=== PATIENT | male | born 1980 | race Caucasian/White ===

== ENCOUNTER 2019-12-09 08:39 | Inpatient (IN) | payer OTHER, SELFPAY ==
[2019-12-09] VITALS (17 sets, daily range): BP systolic 145–237; BP diastolic 92–150; PULSE 95–126; RESP 18–30; TEMP 36–37; O2SAT 95–97; BMI 50.7
--- NOTE | ~2019-12-09 | XR_ITS ---
EXAMINATION: XR chest 2V DATE: 12/09/2019 09:25 INDICATION: Shortness of breath. TECHNIQUE: Frontal and lateral views of the chest were obtained. COMPARISON: Chest 2 views 10/28/2018, chest CT 10/28/2018 FINDINGS: Sensitivity is decreased by obesity. There is a small right pleural effusion. There is mild atelectasis at right lung base. No pneumothorax. There is enlargement of the cardiac silhouette. IMPRESSION: 1. Stable small right pleural effusion. 2. Stable enlargement of the cardiac silhouette, likely a combination of cardiomegaly and pericardial effusion as seen on the prior CT. Reviewed, dictated and finalized at location A. IMPRESSION: 1. Stable small right pleural effusion. 2. Stable enlargement of the cardiac silhouette, likely a combination of cardio megaly and pericardial effusion as seen on the prior CT.
--- NOTE | 2019-12-09 08:51 | ECG_ITS ---
Measurements Intervals [place] Rate: 119 P: 63 IN: 155 QRS: 123 QRSD: 100 T: 39 QT: 329 QTc: 463 Interpretive Statements SINUS TACHYCARDIA POSSIBLE LEFT ATRIAL ENLARGEMENT RIGHT AXIS DEVIATION BORDERLINE R WAVE PROGRESSION, ANTERIOR LEADS BORDERLINE ST-T WAVE ABNORMALITY- INF/LAT LEADS BASELINE ARTIFACT- I, II, III, AVL ABNORMAL ECG Electronically Signed On 12-09-2019 9:33:41 CDT by Edi Soto D.O.
[2019-12-09 09:10] LABS: Basophils Absolute Auto 0.1 K/mm3 (0.0-0.1); Basophils Percent Auto 0.4 % (0.2-1.2); Eosinophils Absolute Auto 0.2 K/mm3 (0-0.3); Eosinophils Percent Auto 1.2 % (0-4.4); Hematocrit 45.7 % (42.0-52.0); Hemoglobin 14.2 g/dL (14.0-18.0); Immature Granulocyte Absolute 0.08 K/mm3 (0.00-0.031); Immature Granulocyte Percent A 0.5 % (0-0.5); Lymphocytes Absolute Auto 2.75 K/mm3 (0.9-3.2); Mean Corpuscular HGB Conc 31.1 g/dl (32-36); Mean Corpuscular Hemoglobin 29.2 pg (26-34); Mean Platelet Volume 9.9 fl (7.4-10.4); Monocytes Percent Auto 6.1 % (2.6-8.5); Neutrophils Absolute Auto 12.1 K/mm3 (1.3-6.7); Neutrophils Percent Auto 74.8 % (45.5-73.1); Platelet Count Result 434 k/mm3 (150-375); Red Blood Count 4.86 M/mm3 (4.6-6.20); Red Cell Distribution Width 16.3 % (11.5-14.5); White Blood Count 16.2 K/mm3 (4.5-10.0)
--- NOTE | 2019-12-09 09:10 | ED.SOB ---
HPI - SOB/Dyspnea General Chief Complaint: Shortness of Breath/Dyspnea Stated Complaint: SOB Time Seen by Provider: 12/09/19 09:00 Source: patient, RN notes reviewed (Disagree with triage note, patient diagnosed with CHF 1 year ago, not 1 month) and old records reviewed Mode of arrival: ambulatory Limitations: no limitations History of Present Illness HPI Narrative: Patient is a 39-year-old male who presents to the emergency department with complaint of shortness of breath and fluid retention. Patient reports onset of symptoms approximately a month ago. Patient was diagnosed with congestive heart failure a little over a year ago and was admitted to the hospital. Patient had not previously been diagnosed with any medical conditions prior to that admission. Patient was found to be extremely hypertensive and in acute heart failure. Patient was discharged with medications, but never followed up with cardiology or primary care physician and stopped taking medicines a couple of months after being discharged in the hospital when the prescriptions ran out. Patient states over the past month he has noticed increasing fluid retention and shortness of breath. Patient reports his symptoms are better if he is sitting in an upright position and worse in reclined position. Patient notes significant dyspnea when he tries to exert himself. Patient also reports intermittent nausea and vomiting for quite some time. MD elicited complaint: shortness of breath Pertinent past history: congestive heart failure Onset (ago): month(s) Exacerbating factors: lying flat and exertion Relieving factors: rest and upright position Known history of: congestive heart failure Associated symptoms: nausea/vomiting Treatment prior to arrival: none Related Data Home oxygen amount: none Home Medications Medication Instructions Recorded Confirmed No Home Medications 12/09/19 12/09/19 Allergies Allergy/AdvReac Type Severity Reaction Status Date / Time penicillin G Allergy Unknown Unknown Verified 10/28/18 05:07 Review of Systems Review of Systems: All systems reviewed & are unremarkable except as noted in HPI and below Constitutional: Constitutional: Reports excessive sweating and Denies fever(s) Cardiovascular: Cardiovascular: Denies chest pain and Reports edema Respiratory: Respiratory: Reports dyspnea Gastrointestinal: Gastrointestinal: Denies abdominal pain, Reports nausea and Reports vomiting PMFSH Past Medical History Medical History (Updated 12/09/19 @ 20:25 by Jayleen Krishnamurthy MD) Cardiomyopathy Hypertension Morbid obesity Systolic congestive heart failure Type 2 diabetes mellitus with hyperglycemia, without long-term current use of insulin Surgical History Surgical History No significant past surgical history Family History Family History (Updated 12/09/19 @ 15:52 by Jitendra Smith MD) Mother , in 2014 while in her mid-50's. First [place] in her mid-40s. Acute myocardial infarction Father Alive and well Social History Social History (Updated 12/09/19 @ 17:24 by Alma Pavon MD) Social History: Patient lives with his father and brother. 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 Smoking status: Never smoker Alcohol intake: current Drinks per week: 1 Alcohol use details: Occasional, light Substance use: never Living arrangements: with family Occupation/Education: occupation Gender identity (if verbalized by the patient): Male Spiritual care concerns: No Exam Const: General: cooperative, no acute distress, alert and diaphoretic Nutritional Appearance: obese morbidly obese Orientation/consciousness: patient oriented x3 Limitations: no limitations HENMT: Mouth: Yes lip normal and Yes moist mucous membranes Resp: Effort & Inspection: normal respiratory effort Auscultation: rales bilateral at the base and diminished lung sounds tiffany
[2019-12-09 09:26] LABS: INR 1.1; Prothrombin Time 14.2 Seconds (11.1-14.7)
[2019-12-09 09:27] LABS: Partial Thromboplastin Time 26.9 SECONDS (22.3-36.8)
[2019-12-09 09:29] LABS: Blood Urea Nitrogen 25 mg/dL (9-20); Calcium 8.8 mg/dL (8.4-10.2); Carbon Dioxide 25 mmol/L (22-30); Chloride 103 mmol/L (98-107); Estimated CRCL calculation 84 ml/min; Estimated Glomerular Filt Rate 57; Glucose 223 mg/dL (75-110); Potassium 4.3 mmol/L (3.4-5.0); Sodium 138 mmol/L (137-145)
[2019-12-09] MEDS: FUROSEMIDE INJ 40 MG/4 ML VIAL IV PUSH ×2 (09:29→20:47)
[2019-12-09] MEDS: NITROGLYCERIN OINTMENT 1 INCH DOSE TRANSDERM ×4 (09:30→23:02)
[2019-12-09 09:44] LABS: NT Pro B Type Natriuretic Pept 4120 PG/ML (5-100); Troponin I 0.091 ng/mL (0.000-0.034)
[2019-12-09] MEDS: hydrALAZINE HCL 20 MG/ML VIAL 10 MG IV PUSH ×2 (10:48→17:17)
[2019-12-09 11:08] LABS: Glucose Point of Care 207 (65-105)
--- NOTE | 2019-12-09 11:44 | ADMGEN ---
This patient, Everardo Sherwood, was admitted to IMU Room 201-01. Patient/family oriented to hospital policies and general routines including ID bracelet, bed and alarms, visiting hours, pain management, procedures, bathroom and other care routines, personal items, smoking policy, room service/diet, and visiting hours. Valuables list has been completed. Information on how to activate the Rapid Response Team has been discussed. Patient/Family are encouraged to report perceived risks to care and to ask questions if they do not understand what they are told or what they should do.
[2019-12-09 12:24] LABS: Glucose Point of Care 205 (65-105)
--- NOTE | 2019-12-09 13:13 | PM.IMHP ---
H&P: HPI History of Present Illness Chief complaint: ACUTE CHF,HYPERGLYCEMIA Narrative: Everardo Sherwood is a 39 year old male who was 1st diagnosed with dilated cardiomyopathy in October of 2018. He was admitted [facility] for acute systolic congestive heart failure and pulmonary edema with symptoms of dyspnea and swelling. He was diuresed and placed on Josef inhibitors and beta-blockers. He took lisinopril 10 mg daily, carvedilol 6.25 mg every 12 hours, furosemide 40 mg twice daily, potassium chloride 20 mEq 2 tabs twice a day with meals, and enteric-coated aspirin 81 mg daily. He he took these medications regularly and did fairly well until about 4 weeks ago. He was trying to eat healthy and do some walking daily. He attributes the onset of his symptoms to the COVID-19 pandemic and quarantine. However, coincidentally he also ran out of medications at that time. Since then, he has experienced gradually increasing shortness of breath, weight gain, abdominal bloating, and pedal edema. Walking across the room cause severe dyspnea. He has been sleeping on the couch because he has not been able to lie flat in bed. He awakened short of breath if he lies flat. On the night prior to admission he developed some nausea with emesis but no abdominal pain. His abdomen felt more bloated. He was more short of breath. Because of this he presented to the emergency department on the morning of December 08. Review of Systems Review of Systems: All systems reviewed & are unremarkable except as noted in HPI and below PMFSH Past Medical History Medical History Cardiomyopathy Hypertension Morbid obesity Systolic congestive heart failure Surgical History Surgical History No significant past surgical history Family History Family History (Updated 12/09/19 @ 15:52 by Jitendra Smith MD) Mother , in 2014 while in her mid-50's. First [place] in her mid-40s. Acute myocardial infarction Father Alive and well Social History Social History (Updated 12/09/19 @ 15:52 by Jitendra Smith MD) Smoking status: Never smoker Alcohol intake: current Drinks per week: 1 Alcohol use details: Occasional, light Substance use: never Living arrangements: with family Occupation/Education: occupation Gender identity (if verbalized by the patient): Male Spiritual care concerns: No Meds Home Medications and Allergies Allergies Allergy/AdvReac Type Severity Reaction Status Date / Time penicillin G Allergy Unknown Unknown Verified 10/28/18 05:07 Vital Signs Vital Signs - 24 hr 12/09/19 08:43 12/09/19 08:48 12/09/19 10:12 Temperature 98.6 F Pulse Rate 126 H 123 H 115 H Respiratory Rate 29 H 25 H Blood Pressure 211/139 H 237/150 H Pulse Oximetry 97 96 12/09/19 10:56 12/09/19 11:13 12/09/19 12:00 Temperature Pulse Rate 110 H 109 H 114 H Respiratory Rate 18 30 H Blood Pressure 185/122 H 194/114 H Pulse Oximetry 95 96 12/09/19 12:40 Temperature 98.2 F Pulse Rate 113 H Respiratory Rate 24 H Blood Pressure 169/104 H Pulse Oximetry 95 Exam Narrative: Exam Narrative: HEENT: EOMI, PERRL, sclerae nonicteric, pharyngeal mucosa pink and intact NECK: No JVD, adenopathy, or thyromegaly CHEST: Clear to auscultation. Normal effort. HEART: NL S1/S2, regular, no murmur ABDOMEN: BS+, soft, nontender, no mass, no bruits EXTREMITIES: No cyanosis, 1+ pretibial edema NEUROLOGIC: CN intact and symmetric to inspection. MUSCULOSKELETAL: Tone and strength symmetric. PSYCH: Alert. Oriented to person, place, and time. H&P: Results Labs Labs: Short CBC 12/09/19 Range/Units 08:59 WBC 16.2 H (4.5-10.0) K/mm3 Hgb 14.2 (14.0-18.0) g/dL Hct 45.7 (42.0-52.0) % Plt Count 434 H (150-375) k/mm3 BMP 12/09/19 08:59 Sodium 138 Potassium 4.3 Chloride 103 Carbon Dioxide 25 B
[2019-12-09 13:16] LABS: Troponin I 0.101 ng/mL (0.000-0.034)
[2019-12-09 16:05] LABS: Troponin I 0.104 ng/mL (0.000-0.034)
[2019-12-09] MEDS: ACETAMINOPHEN 325 MG TABLET 650 MG PO ×2 (16:33→20:57)
[2019-12-09 16:39] LABS: Glucose Point of Care 211 (65-105)
--- NOTE | 2019-12-09 16:44 | WPDCN ---
Assessment and Plan Assessment and plan (1) Acute on chronic systolic (congestive) heart failure: Code(s): I50.23 - Acute on chronic systolic (congestive) heart failure Status: Acute Assessment and Plan: Progressive problems with recurrent CHF as described above, likely due to noncompliance and uncontrolled hypertension. Feeling better already with diuresis and better blood pressure. (2) Hypertensive cardiomyopathy: Code(s): I11.9 - Hypertensive heart disease without heart failure; I43 - Cardiomyopathy in diseases classified elsewhere Status: Acute Assessment and Plan: Cardiomyopathy, most likely secondary to uncontrolled hypertension, EF 30% in 2018. I am distress at the patient's resume hooker that since it ?runs in the family? there is nothing he can do about it. It is a poor prognostic sign to have an ejection fraction of 30% when you are only 39 years old. Reviewed hypertension, and end organ disease. Reviewed benefits of compliance with medical therapy. Patient states that now that he has Medicaid he will be compliant with medications, and follow-up. Check echo Continue IV Lasix Daily BMP Reinstitute carvedilol and lisinopril, titrate as tolerated, agree w/ spironolactone. I have offered to perform the cardiac catheterization recommended last year during this admission to rule out coronary artery disease (I think that is very unlikely however). The patient has declined but says he will consider it at a later date. (3) Uncontrolled hypertension: Code(s): I10 - Essential (primary) hypertension Status: Acute Assessment and Plan: Severe hypertension, out of blood pressure medications for several months. (4) Noncompliance: Code(s): Z91.19 - Patient's noncompliance with other medical treatment and regimen Status: Acute Assessment and Plan: States he has been noncompliant with follow-up because of lack of insurance. Fortunately now he has Medicaid. (5) Elevated troponin I level: Code(s): R79.89 - Other specified abnormal findings of blood chemistry Status: Acute Assessment and Plan: Similar to last admission, likely secondary to CHF and hypertension, no evidence of ACS. (6) Type 2 diabetes mellitus with hyperglycemia, without long-term current use of insulin: Code(s): E11.65 - Type 2 diabetes mellitus with hyperglycemia Status: Acute Assessment and Plan: New diagnosis of diabetes. (7) Morbid obesity: Code(s): E66.01 - Morbid (severe) obesity due to excess calories Status: Acute Assessment and Plan: Likely has sleep apnea; will do an apnea link. HPI Data of Consult Date/Time: 12/09/19 16:44 Requesting Physician: Penny Fall MD Primary Care Provider: PARKING INSPECTOR PHYSICIAN Consult Narrative Narrative: Date of service: 12/09/2019 Everardo Sherwood is a 39 year old male whom we were asked to see at the request of the hospitalist for advice and opinion regarding his CHF in consultation. He has a history of hypertension, cardiomyopathy and CHF. The patient was admitted October 2018 with new onset of heart failure and uncontrolled hypertension. His echo EF was 30% and troponins were 0.11. He was diuresed and started on medications. The plan was performed to perform an outpatient cardiac catheterization because of the elevated troponins., he either no showed or cancel 5 follow-up visits so we never saw him in the office. He apparently ran out of his medicines a few months after his admission. He states he was uninsured and could not afford to be seen but he now has [place] Medicaid. He has been having some progressive dyspnea on exertion. His GRIDER got worse in the
[2019-12-09] MEDS: INSULIN ASPART (*BKC) 100 UNITS/ML SUB-Q (17:17)
[2019-12-09] MEDS: ENOXAPARIN 40 MG/0.4 ML SYRINGE SUB-Q (17:18)
[2019-12-09 20:20] LABS: Glucose Point of Care 216 (65-105)
[2019-12-09] MEDS: lisinopriL 5 MG TABLET PO (20:49)
[2019-12-09] MEDS: carvediloL 3.125 MG TABLET PO (20:50)
[2019-12-10] VITALS (20 sets, daily range): BP systolic 130–156; BP diastolic 75–100; PULSE 84–101; RESP 18–22; TEMP 35.6–36.1; O2SAT 96–98; BMI 47.3
--- NOTE | 2019-12-10 | ECHO_ITS ---
Patient Info Name: Everardo Sherwood Age: 39 years : 1980 Gender: Male Ht: 68 in Wt: 333 lbs BSA: 2.78 m2 HR: 100 bpm BP: 149 / 93 mmHg Heart Rhythm: Tachycardia Technical Quality: Good Exam Date: 12/10/2019 9:57 AM Exam Location: [facility] Pulmonary Patient Status: Inpatient Admit Date: 12/09/2019 Staff Ordering Physician: Jitendra Smith MD Food Science Technician: Sher Kulkarni RDCS Attending Provider: Penny Fall MD Referring Physician: Luis DUNCAN; Exam Type: CA echo dop color flow w con Study Info Indications I42.0 - Dilated cardiomyopathy Complete two-dimensional, color flow and Doppler transthoracic echocardiogram is performed with contrast to opacify the left ventrical and to improve the deliniation of the left ventrical endocarial boarders. Contrast/Agitated Saline Contrast/Ag. Saline: Definity Amount: 2.00 ml Administered By: Hebert Montgomery RN Existing IV Access: Yes History/Risk Factors CHF; SOB, HTN, DM, edema, orthopnea, SOB, medical non-compliance. Summary 1. Left ventricular systolic function is severely reduced, estimated at 30-35%. 2. Definity contrast injected to enhance visualization. 3. Left ventricular chamber dimension is moderately enlarged. 4. Left atrial chamber dimension is mildly enlarged. 5. There is trace mitral valve regurgitation. 6. Compared with exam from 1 year ago the findings are identical. Left Ventricle Left ventricular chamber dimension is moderately enlarged. Left ventricular systolic function is severely reduced, estimated at 30-35%. The left ventricular diastolic function is grade I diastolic dysfunction. Definity contrast injected to enhance visualization. Right Ventricle Right ventricular chamber dimension is normal. Left Atria Left atrial chamber dimension is mildly enlarged. Right Atria Right atrial chamber dimension is normal. Aortic Valve The aortic valve is normal. Pulmonic Valve The pulmonic valve is normal. Mitral Valve The mitral valve has thickened leaflets. There is trace mitral valve regurgitation. Tricuspid Valve The tricuspid valve leaflets are normal. Pericardium/Pleural There is trivial pericardial effusion. Aorta The aortic root size at the sinus of Valsalva is normal. Left Ventricular Outflow Tract Name Value Normal LVOT 2D LVOT Diameter 2.53 cm LVOT Doppler LVOT Peak Gradient 4 mmHg LVOT Mean Gradient 2 mmHg LVOT VTI 14.98 cm LVOT VTI/AV VTI Ratio 0.62 LVOT Stroke Volume 75.31 ml LVOT CO 7.31 l/min LVOT CI 2.63 L/min/m2 Mitral Valve Name Value Normal MV Doppler MV Decel Cocke
[2019-12-10] MEDS: NITROGLYCERIN OINTMENT 1 INCH DOSE TRANSDERM (05:41)
[2019-12-10] MEDS: ACETAMINOPHEN 325 MG TABLET 650 MG PO (05:45)
[2019-12-10 08:17] LABS: Glucose Point of Care 129 (65-105)
[2019-12-10] MEDS: SPIRONOLACTONE 25 MG TABLET PO (08:28)
[2019-12-10] MEDS: carvediloL 3.125 MG TABLET PO (08:28)
[2019-12-10] MEDS: FUROSEMIDE INJ 40 MG/4 ML VIAL IV PUSH (08:28)
[2019-12-10] MEDS: lisinopriL 5 MG TABLET PO ×2 (08:29→13:01)
[2019-12-10] MEDS: PERFLUTREN LIPID MICROSPHERES 1.5 ML VIAL DILUTED TO 10 ML TOTAL VOLUME (10:45)
[2019-12-10 11:26] LABS: Blood Urea Nitrogen 20 mg/dL (9-20); Calcium 8.8 mg/dL (8.4-10.2); Carbon Dioxide 28 mmol/L (22-30); Chloride 98 mmol/L (98-107); Cholesterol 107 mg/dL (0-200); Estimated CRCL calculation 113 ml/min; Estimated Glomerular Filt Rate > 60; Glucose 250 mg/dL (75-110); HDL Direct 22 mg/dL; Potassium 3.6 mmol/L (3.4-5.0); Sodium 136 mmol/L (137-145); Triglycerides 99 mg/dL (<150)
[2019-12-10 11:37] LABS: LDL Cholesterol Direct 56 mg/dL
[2019-12-10 11:38] LABS: Hemoglobin A1C 7.5 % (<5.7)
--- NOTE | 2019-12-10 11:55 | PM.PNCARD ---
Progress Note: A&P Additional Plan 39-year-old white male with: CHF decompensation, known cardiomyopathy, noncompliance with medication. Echocardiogram looks identical to last year's exam Patient is new nearly euvolemic at this time there are modest bibasilar rales he is also still significantly hypertensive. I will transition his Lasix to p.o. today and advanced both his carvedilol and lisinopril given his hypertension. Set the expectation with the patient that I believe discharged tomorrow morning would be appropriate Follow-up in our office will be scheduled hopefully he will will be compliant Vu Griffin MD [facility] Subjective Date/time seen: Date of service: 12/10/19 11:55 Interval history: 39-year-old male with: Cardiomyopathy, systolic congestive heart failure, noncompliance with medical therapy and follow-up. Patient is now doing well following diuresis and resumption medication for CHF. Long discussion with the patient about the seriousness of his condition and the need for compliance with medication and follow-up Exam Const: General: comfortable and no acute distress HENMT: Mouth: Yes moist mucous membranes Eyes: Sclera: sclerae normal Pupils: Equal, round and reactive pupils present Neck: Neck: supple and no JVD (2 cm of JVD noted above the angle of Dwayne ) Thyroid: thyroid normal Resp: Auscultation: rales bilateral at the base Cardio: Rate: regular rate Rhythm: regular rhythm Other: No murmur S3 noted GI: Auscultation: normal bowel sounds Skin: General skin exam: normal color Neuro: Cognition (Neuro): normal cognition Extrem: Other: Edema seems to be largely resolved Objective Data Vital Signs Vital Signs: Vital Signs - 24 hr 12/09/19 12:00 12/09/19 12:40 12/09/19 13:55 Temperature 36.8 C Pulse Rate 114 H 113 H 109 H Respiratory Rate 24 H Blood Pressure 169/104 H Pulse Oximetry 95 12/09/19 16:00 12/09/19 16:01 12/09/19 17:39 Temperature 36.4 C Pulse Rate 109 H 108 H 101 H Respiratory Rate 21 H Blood Pressure 167/109 H Pulse Oximetry 96 12/09/19 19:25 12/09/19 20:30 12/09/19 20:50 Temperature 36.0 C L Pulse Rate 105 H 105 H 108 H Respiratory Rate 22 H Blood Pressure 162/112 H Pulse Oximetry 97 12/09/19 22:00 12/09/19 23:11 12/09/19 23:15 Temperature 36.1 C L Pulse Rate 101 H 95 95 Respiratory Rate 20 Blood Pressure 145/92 H Pulse Oximetry 96 12/10/19 01:28 12/10/19 03:20 12/10/19 04:00 Temperature 36.1 C L Pulse Rate 84 85 98 Respiratory Rate 20 Blood Pressure 149/93 H Pulse Oximetry 97 12/10/19 05:10 12/10/19 06:00 12/10/19 08:00 Temperature Pulse Rate 87 85 97 Respiratory Rate 22 H Blood Pressure Pulse Oximetry 96 12/10/19 08:22 12/10/19 08:28 12/10/19 10:00 Temperature 36.1 C L Pulse Rate 92 90 101 H Respiratory Rate 22 H Blood Pressure 156/100 H Pulse Oximetry 96 Intake/Output Intake/Output: Intake & Output 12/07/19 12/08/19 12/09/19 12/10/19 23:59 23:59 23:59 23:59 Intake Total 1400 1040 Output Total 3050 4000 Balance -1650 -2960 Meds/Results Medications: Active Medications Generic Name Dose Route Start Last Admin Trade Name Freq PRN Reason Stop Dose Admin Acetaminophen 650 mg 12/09/19 16:08 12/10/19 05:45 Tylenol Tablet PO 650 mg Q4H PRN Administration Headache Dextrose 12.5 gm 12/09/19 16:15 Dextrose 50% Syringe IV PUSH PRN PRN Hypoglycemia Protocol Enoxaparin Sodium 40 mg 12/09/19 18:00 12/09/19 17:18 Lovenox SUB-Q 40 mg QPM JENS Administration Glucagon 1 mg 12/09/19 16:15 Glucagon For Inj IM PRN PRN Hypoglycemia Protocol Glucose 15 gm 12/09/19 16:15 Glutose 15 PO PRN PRN Hypoglycemia Protocol Hydralazine HCl 10 mg 12/09/19 16:15 12/09/19 17:17 Apresoline Hcl Inj IV PUSH 10 mg Q8H PRN Administration Blood Pressure - High Dextrose 1
--- NOTE | 2019-12-10 12:09 | PM.IMPN ---
Progress Note: A&P Assessment and Plan (1) Systolic congestive heart failure: Qualifiers: Heart failure chronicity: acute on chronic Qualified Code(s): I50.23 - Acute on chronic systolic (congestive) heart failure Code(s): I50.20 - Unspecified systolic (congestive) heart failure Status: Acute Assessment and Plan: Continue lisinopril, carvedilol, spironolactone, furosemide Follow-up lab Anticipate discharge 12/10 Follow-up as outpatient with Cardiology (2) Hypertension: Qualifiers: Hypertension type: unspecified Qualified Code(s): I10 - Essential (primary) hypertension Code(s): I10 - Essential (primary) hypertension Status: Acute Assessment and Plan: Uncontrolled admission due to medication noncompliance and volume overload Diuresis Resumed lisinopril and carvedilol, although he may be a candidate for Entresto Control improving (3) Type 2 diabetes mellitus with hyperglycemia, without long-term current use of insulin: Code(s): E11.65 - Type 2 diabetes mellitus with hyperglycemia Status: Acute Assessment and Plan: Labs in October 2018 were consistent with impaired glucose tolerance Fasting blood sugar over 200 at this admission is consistent with type 2 diabetes A1c 7.5 Diabetic diet Diabetic Education Sliding scale insulin while hospitalized 12/09 added metformin (4) Elevated troponin I level: Code(s): R79.89 - Other specified abnormal findings of blood chemistry Status: Acute Assessment and Plan: This appears to be due to his acute exacerbation of systolic congestive heart failure Labs were similar in October of 2018 No acute coronary syndrome Subjective Date/time seen: 12/10/19 12:09 Interval history: Admitted 12/08 with acute on chronic systolic congestive heart failure 12/09 much less short of breath. Much less swelling. No chest pressure tightness. No palpitations. Urinating frequently. No abnormal bleeding. Review of Systems Review of Systems: All systems reviewed & are unremarkable except as noted in HPI and below Exam Narrative: Exam Narrative: HEENT: EOMI, PERRL, sclerae nonicteric, pharyngeal mucosa pink and intact NECK: No JVD, adenopathy, or thyromegaly CHEST: Clear to auscultation. Normal effort. HEART: NL S1/S2, regular, no murmur ABDOMEN: BS+, soft, nontender, no mass, no bruits EXTREMITIES: No cyanosis, 1+ pretibial edema NEUROLOGIC: CN intact and symmetric to inspection. MUSCULOSKELETAL: Tone and strength symmetric. PSYCH: Alert. Oriented to person, place, and time. Objective Data Vital Signs Vital Signs: Vital Signs - 24 hr 12/09/19 12:40 12/09/19 13:55 12/09/19 16:00 Temperature 98.2 F Pulse Rate 113 H 109 H 109 H Respiratory Rate 24 H Blood Pressure 169/104 H Pulse Oximetry 95 12/09/19 16:01 12/09/19 17:39 12/09/19 19:25 Temperature 97.6 F 96.8 F L Pulse Rate 108 H 101 H 105 H Respiratory Rate 21 H 22 H Blood Pressure 167/109 H 162/112 H Pulse Oximetry 96 97 12/09/19 20:30 12/09/19 20:50 12/09/19 22:00 Temperature Pulse Rate 105 H 108 H 101 H Respiratory Rate Blood Pressure Pulse Oximetry 12/09/19 23:11 12/09/19 23:15 12/10/19 01:28 Temperature 96.9 F L Pulse Rate 95 95 84 Respiratory Rate 20 Blood Pressure 145/92 H Pulse Oximetry 96 12/10/19 03:20 12/10/19 04:00 12/10/19 05:10 Temperature 96.9 F L Pulse Rate 85 98 87 Respiratory Rate 20 Blood Pressure 149/93 H Pulse Oximetry 97 12/10/19 06:00 12/10/19 08:00 12/10/19 08:22 Temperature 97.0 F L Pulse Rate 85 97 92 Respiratory Rate 22 H 22 H Blood Pressure 156/100 H Pulse Oximetry 96 96 12/10/19 08:28 12/10/19 10:00 Temperature Pulse Rate 90 101 H Respiratory Rate Blood Pressure Pulse Oximetry Intake/Output Intake/Output: Intake & Output 12/07/19 12/08/19 12/09/19 12/10/19 23:59 23:59 23:59 23:59 Intake
[2019-12-10 12:48] LABS: Glucose Point of Care 186 (65-105)
[2019-12-10] MEDS: carvediloL 12.5 MG TABLET PO ×2 (13:00→20:29)
[2019-12-10 16:30] LABS: Glucose Point of Care 137 (65-105)
[2019-12-10] MEDS: metFORMIN HCL 500 MG TABLET PO (17:56)
[2019-12-10] MEDS: ENOXAPARIN 40 MG/0.4 ML SYRINGE SUB-Q (17:56)
[2019-12-10] MEDS: POTASSIUM CHLORIDE 20 MEQ TABLET PO (17:57)
[2019-12-10] MEDS: lisinopriL 10 MG TABLET PO (20:29)
[2019-12-10 21:04] LABS: Glucose Point of Care 154 (65-105)
[2019-12-10] MEDS: BENZOCAINE/MENTHOL (*BKC) 18 EA LOZENGE 1 LOZENGE PO (21:50)
[2019-12-11] VITALS: BP 116/70; PULSE 81; PULSE 86; RESP 20; TEMP 36.6; O2SAT 97
[2019-12-11 01:50] VITALS: PULSE 83
[2019-12-11 04:00] VITALS: BP 124/85; PULSE 84; PULSE 86; RESP 20; TEMP 36.1; O2SAT 96
[2019-12-11 05:44] VITALS: PULSE 85
[2019-12-11 07:51] LABS: Glucose Point of Care 131 (65-105)
[2019-12-11 08:00] VITALS: BP 118/84; PULSE 86; PULSE 88; RESP 16; TEMP 36.3; O2SAT 96
[2019-12-11 08:10] LABS: Blood Urea Nitrogen 27 mg/dL (9-20); Calcium 8.4 mg/dL (8.4-10.2); Carbon Dioxide 31 mmol/L (22-30); Chloride 98 mmol/L (98-107); Estimated CRCL calculation 90 ml/min; Estimated Glomerular Filt Rate 57; Glucose 137 mg/dL (75-110); Magnesium 2.1 mg/dL (1.6-2.3); Potassium 3.7 mmol/L (3.4-5.0); Sodium 136 mmol/L (137-145)
--- NOTE | 2019-12-11 08:59 | PM.DS ---
DS: Summary Hospital Course Reason for hospitalization: dyspnea Hospital Course: Admitted with dyspnea. Known systolic CHF. Reponded well to medication adjustment and IV furosemide for diuresis as outlined below. Echo showed LVEF 30-35%, unchanged from one year ago. Time Spent with Patient Time attestation: Total time spent providing and/or coordinating discharge services: Exam Narrative: Exam Narrative: HEENT: EOMI, PERRL, sclerae nonicteric, pharyngeal mucosa pink and intact NECK: No JVD, adenopathy, or thyromegaly CHEST: Clear to auscultation. Normal effort. HEART: NL S1/S2, regular, no murmur ABDOMEN: BS+, soft, nontender, no mass, no bruits EXTREMITIES: No cyanosis, 1+ pretibial edema NEUROLOGIC: CN intact and symmetric to inspection. MUSCULOSKELETAL: Tone and strength symmetric. PSYCH: Alert. Oriented to person, place, and time. DS: Data Data Completed and Pending Labs on day of discharge: Labs from last 24 hours 12/11/19 12/11/19 12/10/19 07:37 07:13 20:49 Sodium 136 L Potassium 3.7 Chloride 98 Carbon Dioxide 31 H BUN 27 H Creatinine 1.40 H Estim Creat Clear Calc 90 Estimated GFR 57 L Glucose 137 H POC Capillary Glucose 131 H 154 H Hemoglobin A1c Calcium 8.4 Magnesium 2.1 Triglycerides Cholesterol LDL Cholesterol Direct HDL Direct TSH (Reflex) 12/10/19 12/10/19 12/10/19 16:16 11:56 10:31 Sodium Potassium Chloride Carbon Dioxide BUN Creatinine Estim Creat Clear Calc Estimated GFR Glucose POC Capillary Glucose 137 H 186 H Hemoglobin A1c 7.5 H Calcium Magnesium Triglycerides Cholesterol LDL Cholesterol Direct HDL Direct TSH (Reflex) 12/10/19 12/10/19 10:31 10:31 Sodium 136 L Potassium 3.6 Chloride 98 Carbon Dioxide 28 BUN 20 Creatinine 1.10 Estim Creat Clear Calc 113 Estimated GFR > 60 Glucose 250 H POC Capillary Glucose Hemoglobin A1c Calcium 8.8 Magnesium Triglycerides 99 Cholesterol 107 LDL Cholesterol Direct 56 HDL Direct 22 TSH (Reflex) 2.180 Discharge Plan Discharge Consulting providers: Michelle Easton ; Alma Pavon ; Edi Soto ; Chadwick Chen V. ; Vu Griffin ; Macario Mensah Discharging Clinician: Jitendra Smith Patient Disposition: Home, Self-Care Activity: no straining Diet: diabetic and low sodium Discharge Instructions: CARDIOLOGY DISCHARGE INSTRUCTIONS ACTIVITY: Activity as tolerated with precautions to avoid falls. Rise slowly from a seated or lying position. Elevate legs when sitting. Weigh self daily after you have urinated in the morning. If you gain more than 3 lb in 2 days or 5 lb in one week please call 's office and speak to one of the nurses. FOLLOW-UP: Follow up with [facility], [place] office at [facility] [address] with Niki Rios NP on December 24, 2019 at 10:00 a.m.. Please arrive by 9:45 a.m. for your appointment. Bring photo ID, insurance card(s) and current medication list. In your discharge packet new patient paperwork has been provided. Please complete all forms (please note some of these forms have 2 sides) and return them to the office either in person or by mail BEFORE your scheduled appointment. If we do not receive the forms BEFORE your appointment we may have to reschedule. Sign up for [employer]. The activation code is on your appointment confirmation BLOOD WORK: Have blood drawn on Friday, December 15, 2019 to check kidney function and electrolytes. Results to go to Dr Lynch's office. Patient Instructions: Antibiotic Form, Heart Failure (IP), Heart Healthy Diet (ED), Pain Management (DC), Basic Carbohydrate Counting (DC) Stand Alone Forms: General Discharge Information Follow-up/Referrals: Toney Lynch MD [Physician] - Call for [place]
[2019-12-11 09:17] VITALS: PULSE 82
[2019-12-11] MEDS: carvediloL 12.5 MG TABLET PO (09:17)
[2019-12-11] MEDS: lisinopriL 10 MG TABLET PO (09:17)
[2019-12-11] MEDS: FUROSEMIDE 20 MG TABLET PO (09:18)
[2019-12-11] MEDS: SPIRONOLACTONE 25 MG TABLET PO (09:18)
[2019-12-11] MEDS: metFORMIN HCL 500 MG TABLET PO (09:18)
--- NOTE | 2019-12-11 09:54 | PM.PNCARD ---
Progress Note: A&P Assessment and Plan (1) Acute on chronic systolic (congestive) heart failure: Code(s): I50.23 - Acute on chronic systolic (congestive) heart failure Status: Acute Assessment and Plan: Progressive problems with recurrent CHF as described above, likely due to noncompliance and uncontrolled hypertension. Feeling better already with diuresis and better blood pressure. (2) Hypertensive cardiomyopathy: Code(s): I11.9 - Hypertensive heart disease without heart failure; I43 - Cardiomyopathy in diseases classified elsewhere Status: Acute Assessment and Plan: Cardiomyopathy, most likely secondary to uncontrolled hypertension, EF 30% in 2018. I am distress at the patient's resume hooker that since it ?runs in the family? there is nothing he can do about it. It is a poor prognostic sign to have an ejection fraction of 30% when you are only 39 years old. Continue current medical regimen and up titrate as able. He may benefit from transitioning to [facility] as an outpatient. I have offered to perform the cardiac catheterization recommended last year during this admission to rule out coronary artery disease (I think that is very unlikely however). The patient has declined but says he will consider it at a later date. (3) Uncontrolled hypertension: Code(s): I10 - Essential (primary) hypertension Status: Acute Assessment and Plan: Continue current meds (4) Noncompliance: Code(s): Z91.19 - Patient's noncompliance with other medical treatment and regimen Status: Acute Assessment and Plan: States he has been noncompliant with follow-up because of lack of insurance. Fortunately now he has Medicaid. (5) Elevated troponin I level: Code(s): R79.89 - Other specified abnormal findings of blood chemistry Status: Acute Assessment and Plan: Similar to last admission, likely secondary to CHF and hypertension, no evidence of ACS. (6) Type 2 diabetes mellitus with hyperglycemia, without long-term current use of insulin: Code(s): E11.65 - Type 2 diabetes mellitus with hyperglycemia Status: Acute Assessment and Plan: New diagnosis of diabetes. (7) Morbid obesity: Code(s): E66.01 - Morbid (severe) obesity due to excess calories Status: Acute Assessment and Plan: Will need formal sleep study as an outpatient Additional Plan Additional 20 mEq of potassium chloride x1 because of hypokalemia. Okay for discharge DC telemetry monitoring Subjective Date/time seen: 12/11/19 09:54 Interval history: 39-year-old male with: Cardiomyopathy, systolic congestive heart failure, noncompliance with medical therapy and follow-up. Patient is now doing well following diuresis and resumption medication for CHF. Date of service 12/11/2019: No chest pain or shortness of breath. Anxious to go home. Review of Systems Constitutional: Constitutional: Denies chills, Reports fatigue, Denies headache(s) and Reports lethargy Eyes: Eyes: Reports no additional eye complaints ENT: Denies headache(s), Denies epistaxis, Denies nasal congestion and Denies neck pain Cardiovascular: Cardiovascular: Denies chest pain, Reports pedal edema, Reports lightheadedness (Once felt lightheaded when he ?did too much.?) and Reports palpitations (Occasionally feels fast heartbeat) Respiratory: Respiratory: Denies hemoptysis, Reports dyspnea, Reports dyspnea on exertion and Denies wheezing Gastrointestinal: Gastrointestinal: Denies abdominal pain, Reports bloating, Denies hematochezia and Denies hematemesis Genitourinary: Genitourinary: Denies hematuria and Denies dysuria Musculoskeletal: Musculoskeletal: Denies back pain, Denies arthralgias, Den
[2019-12-11] MEDS: POTASSIUM CHLORIDE 20 MEQ TABLET PO (10:15)
== END 2019-12-11 10:15 | disposition home or self-care (01) | DRG 194 ==
LOC: ANHED 10:33 → ANHIMU 13:44
PROVIDERS: Admitting Provider Family Medicine; Emergency Provider Emergency Medicine; Visit Provider Internal Medicine
DX: I11.0 Hypertensive heart disease with heart failure (principal); I50.23 Acute on chronic systolic (congestive) heart failure; E11.65 Type 2 diabetes mellitus with hyperglycemia; R79.89 Other specified abnormal findings of blood chemistry; I42.0 Dilated cardiomyopathy; E66.01 Morbid (severe) obesity due to excess calories; Z68.42 Body mass index [BMI] 45.0-49.9, adult; Z91.14 Patient's other noncompliance with medication regimen
CPT/HCPCS: 36415; 71046; 80048; 80061; 82948; 83036; 83735; 83880; 84443; 84484; 85025; 85610; 85730; 93005; 94762; 96374; 96375; 99285; A9270; C8929; J0360; J1650; J1815; J1940; Q9957

== ENCOUNTER 2020-05-08 13:50 | Observation (INO) | payer OTHER, SELFPAY ==
[2020-05-08] VITALS (12 sets, daily range): BP systolic 127–173; BP diastolic 70–98; PULSE 82–115; RESP 16–35; TEMP 36.6–37.5; O2SAT 98–100; BMI 47.8
--- NOTE | ~2020-05-08 | US_ITS ---
EXAMINATION: US renal BI DATE: 05/09/2020 08:40 INDICATION: Acute renal failure. TECHNIQUE: Multiple ultrasound grayscale images of the kidneys were obtained. COMPARISON: None. FINDINGS: The right kidney measures 10.1 x 5.0 x 5.0 cm. The left kidney measures 11.2 x 4.6 x 5.7 cm. The kidn eys demonstrate normal parenchymal echogenicity. There is no hydronephrosis. The bladder is normal. IMPRESSION: 1. Normal kidneys. No hydronephrosis. Reviewed, dictated and finalized at location A.
--- NOTE | ~2020-05-08 | XR_ITS ---
EXAMINATION: XR chest 2V DATE: 05/08/2020 14:13 INDICATION: Abnormal labs. TECHNIQUE: Frontal and lateral views of the chest were obtained. COMPARISON: Chest 2 views 12/09/2019, chest CT 10/28/2018 FINDINGS: The chest demonstrates clear lungs without pneumonia, pleural effusion, or pneumothorax. Th e heart size is normal. IMPRESSION: 1. No acute cardiopulmonary disease. Reviewed, dictated and finalized at location A.
--- NOTE | 2020-05-08 13:56 | ECG_ITS ---
Measurements Intervals [place] Rate: 101 P: 45 NH: 189 QRS: 81 QRSD: 104 T: 69 QT: 332 QTc: 431 Interpretive Statements SINUS TACHYCARDIA BASELINE ARTIFACT- I, II, AVL, AVF BORDERLINE ECG Electronically Signed On 05-08-2020 14:06:07 CDT by Edi Soto D.O.
--- NOTE | 2020-05-08 13:58 | ED.GENADULT ---
HPI - General Adult General Chief complaint: Recheck/Abnormal Lab/Rx Stated complaint: abnormal labs Time Seen by Provider: 05/08/20 13:53 Source: patient History of Present Illness HPI narrative: Patient is a 40 y/o male sent in by Dr. Scott for abnormal labs. Patient states that he was seen by his doctor and had labs drawn on 04/30. He was called by his doctor's office today and instructed to come to ED for evaluation because his A1C, kidney function and cholesterol are all abnormal. He denies any complaints at this time. He denies any chest pain, SOB, vomiting, diarrhea or weakness. He states that he did not take Metformin for several days because he ran out and his doctor did no refill it immediately. However, it was refilled and he is taking all his meds as prescribed. Related Data Home Medications Medication Instructions Recorded Confirmed carvedilol 25 mg PO BID 05/08/20 05/08/20 lisinopril 40 mg PO DAILY 05/08/20 05/08/20 Allergies Allergy/AdvReac Type Severity Reaction Status Date / Time penicillin G Allergy Unknown Unknown Verified 05/08/20 17:00 Review of Systems Constitutional: Constitutional: Denies chills, Denies fever(s), Denies headache(s) and Denies weakness Eyes: Eyes: Denies blurry vision ENT: Denies headache(s) and Denies neck pain Cardiovascular: Cardiovascular: Denies chest pain and Denies dyspnea Respiratory: Respiratory: Denies cough and Denies dyspnea Gastrointestinal: Gastrointestinal: Denies abdominal pain, Denies diarrhea, Denies nausea and Denies vomiting Genitourinary: Genitourinary: Denies hematuria and Denies dysuria Musculoskeletal: Musculoskeletal: Denies back pain and Denies neck pain Neurologic: Denies headache(s) and Denies weakness [facility] Past Medical History Medical History (Updated 05/08/20 @ 20:57 by Krupa Forman MD) Cardiomyopathy Congestive heart failure last echo November of 2019 EF of 30-35% Hypertension Morbid obesity Systolic congestive heart failure Type 2 diabetes mellitus with hyperglycemia, without long-term current use of insulin Surgical History Surgical History No significant past surgical history Family History Family History Mother , in 2014 while in her mid-50's. [place] in her mid-40s. Acute myocardial infarction Chronic obstructive pulmonary disease History of blood clots Cerebrovascular accident Congestive heart failure Diabetes mellitus Hypertension Father Alive and well Social History Social History (Updated 05/08/20 @ 19:21 by Tiffanie Carlisle NP) Social History: Patient lives with his father and brother. 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 The patient is not able to work at this point because of his ejection fraction of 30-35%. He is a nonsmoker does not drink use marijuana or any illicit drugs. The patient stated that he would nominated his dad to be the durable power field collector for healthcare. And he is a full code. Smoking status: Never smoker Second hand tobacco smoke exposure: Yes Alcohol intake: never Drinks per week: 1 Substance use: never Substance use type: does not use Living arrangements: with family Gender identity (if verbalized by the patient): Male Spiritual care concerns: No Exam Const: General: no acute distress and well developed Orientation/consciousness: oriented to person, oriented to place, oriented to time and patient oriented x3 HENMT: Head: normocephalic Ears: external ears normal General nose exam: Normal external nose present Eyes: General: appearance normal, both eyes and all related structures Conjunctivae: conjunctivae normal Neck: Neck: normal visual inspection and full ROM Chest: Chest palpation & inspection: normal inspection of the chest and no tenderness Resp: Effort & Inspection: normal respiratory effort
[2020-05-08 14:11] LABS: Basophils Absolute Auto 0.1 K/mm3 (0.0-0.1); Basophils Percent Auto 0.3 % (0.2-1.2); Eosinophils Absolute Auto 0.4 K/mm3 (0-0.3); Eosinophils Percent Auto 2.4 % (0-4.4); Hematocrit 32.5 % (42.0-52.0); Hemoglobin 10.6 g/dL (14.0-18.0); Immature Granulocyte Absolute 0.12 K/mm3 (0.00-0.031); Immature Granulocyte Percent A 0.7 % (0-0.5); Lymphocytes Absolute Auto 2.78 K/mm3 (0.9-3.2); Lymphocytes Percent Auto 16.2 % (18.3-44.2); Mean Corpuscular HGB Conc 32.6 g/dl (32-36); Mean Corpuscular Hemoglobin 31.1 pg (26-34); Mean Corpuscular Volume 95.3 fl (80-100); Mean Platelet Volume 9.6 fl (7.4-10.4); Monocytes Percent Auto 5.8 % (2.6-8.5); Neutrophils Absolute Auto 12.8 K/mm3 (1.3-6.7); Neutrophils Percent Auto 74.6 % (45.5-73.1); Platelet Count Result 362 k/mm3 (150-375); Red Blood Count 3.41 M/mm3 (4.6-6.20); Red Cell Distribution Width 12.4 % (11.5-14.5); White Blood Count 17.2 K/mm3 (4.5-10.0)
[2020-05-08 14:22] LABS: Alanine Aminotransferase 29 U/L (4-50); Albumin Level 4.7 g/dL (3.5-5.1); Alkaline Phosphatase 103 U/L (38-126); Anion Gap 15 mmol/L (8-16); Aspartate Amino Transferase 25 U/L (17-59); Bilirubin,Total 0.3 mg/dL (0.2-1.3); Blood Urea Nitrogen 57 mg/dL (9-20); Calcium 9.9 mg/dL (8.4-10.2); Carbon Dioxide 23 mmol/L (22-30); Chloride 104 mmol/L (98-107); Estimated CRCL calculation 47 ml/min; Estimated Glomerular Filt Rate 27; Glucose 164 mg/dL (75-110); Potassium 5.5 mmol/L (3.4-5.0); Sodium 142 mmol/L (137-145)
[2020-05-08 14:34] LABS: NT Pro B Type Natriuretic Pept 53 PG/ML (5-100); Troponin I < 0.012 ng/mL (0.000-0.034)
[2020-05-08] MEDS: SODIUM CHLORIDE 0.9% IV 1,000 ML 100 ML IV CONT (14:51)
[2020-05-08] MEDS: SODIUM POLYSTYRENE SULFONONATE 15 GM/60 ML BTL PO ×2 (15:02)
--- NOTE | 2020-05-08 16:58 | PC.NURSE ---
This patient, Everardo Sherwood, was admitted to Medical Room 249-01. Patient/family oriented to hospital policies and general routines including ID bracelet, bed and alarms, visiting hours, pain management, procedures, bathroom and other care routines, personal items, smoking policy, room service/diet, and visiting hours. Valuables list has been completed. Information on how to activate the Rapid Response Team has been discussed. Patient/Family are encouraged to report perceived risks to care and to ask questions if they do not understand what they are told or what they should do.
--- NOTE | 2020-05-08 19:03 | PM.IMHP ---
H&P: HPI History of Present Illness Date/Time: 05/08/20 19:03 Chief complaint: Rui/hyperkalemia Narrative: Everardo Sherwood is a 40 year old male Who was admitted here in November for cardiomyopathy and was diagnosed with congestive heart failure with an ejection fraction of 30-35%. The patient was placed on Coreg, Lasix, and lisinopril. The patient was also found to be diabetic and was started on metformin. The patient stated that he has been taking his medications as prescribed. He said that he has been trying to work out as much as he can in eat normally. He has not been short of breath or had any fevers or chills or cough. The patient went to his primary care doctor's office Dr. kapoor who sent into the emergency room today because of abnormal labs. He had labs that were drawn on 04/30 he had an abnormal A1c, kidney function and cholesterol . His creatinine was noted to be 2.7. Back in November it was 1.4. GFR 27. His white count 17.2. His H&H is 10.6 and 32.5. I am not able to see his A1c at this time. Nephrology has been consulted. The patient has no complaints and states that he feels fine. The patient was started on normal saline. Chest x-ray was read as no acute cardiopulmonary disease. The patient was admitted for observation for uncontrolled diabetes, acute renal failure and hyperlipidemia. Date of service 05/08/2020 Review of Systems Review of Systems: All systems reviewed & are unremarkable except as noted in HPI and below Constitutional: Constitutional: Reports as per HPI and Reports no additional constitutional complaints Eyes: Eyes: Reports as per HPI and Reports no additional eye complaints ENT: Reports system reviewed and no additional complaints, except as documented and Reports Normal hearing present Cardiovascular: Cardiovascular: Reports no additional cardiovascular complaints Respiratory: Respiratory: Reports no additional respiratory complaints and Reports no additional respiratory complaints Gastrointestinal: Gastrointestinal: Reports as per HPI and Reports no additional gastrointestinal complaints Musculoskeletal: Musculoskeletal: Reports no additional musculoskeletal complaints Integumentary/Breasts: Skin/Breast: Reports system reviewed and no additional complaints, except as docu and Reports as per HPI Neurologic: Reports system reviewed and no additional complaints, except as documented, Reports as per HPI and Reports Normal hearing present Psychiatric: Psychiatric: Reports no additional psychiatric complaints and Reports as per HPI Endocrine: Endocrine: Reports no additional endocrine complaints Hematologic/Lymphatic: Hematologic/Lymphatic: Reports no additional hematologic/lymphatic complaints Allergic/Immunologic: Allergic/Immunologic: Reports no additional allergic/immunologic complaints [facility] Past Medical History Medical History (Updated 05/08/20 @ 19:25 by Tiffanie Carlisle NP) Cardiomyopathy Congestive heart failure last echo November of 2019 EF of 30-35% Hypertension Morbid obesity Systolic congestive heart failure Type 2 diabetes mellitus with hyperglycemia, without long-term current use of insulin Surgical History Surgical History No significant past surgical history Family History Family History Mother , in 2014 while in her mid-50's. [place] in her mid-40s. Acute myocardial infarction Chronic obstructive pulmonary disease History of blood clots Cerebrovascular accident Congestive heart failure Diabetes mellitus Hypertension Father Alive and well Social History Social History (Updated 05/08/20 @ 19:21 by Tiffanie Carlisle NP) Social History: Patient lives with his father and brother. 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 The patient is not able to work at this point because of his ejection fraction of 30-35%. He is a nons
[2020-05-08] MEDS: carvediloL 25 MG TABLET PO (20:23)
[2020-05-08 21:00] LABS: Glucose Point of Care 152 (65-105)
[2020-05-09] VITALS (14 sets, daily range): BP systolic 106–159; BP diastolic 58–85; PULSE 68–93; RESP 16; TEMP 36.1–37.2; O2SAT 97–100
--- NOTE | 2020-05-09 | ECHO_ITS ---
Patient Info Name: Everardo Sherwood Age: 40 years : 1980 Gender: Male Ht: 68 in Wt: 314 lbs BSA: 2.69 m2 HR: 81 bpm BP: 133 / 70 mmHg Heart Rhythm: Sinus Rhythm Technical Quality: Good Exam Date: 05/09/2020 2:16 PM Exam Location: [facility] Patient Status: Inpatient Admit Date: 05/08/2020 Staff Ordering Physician: Macario Mensah MD Patent Agent: Terry Quinones, AMILCAR, RT Attending Provider: Virgilio Cruz MD Referring Physician: Rodrick CH; Exam Type: CA echo dop color flow w con Study Info Indications I50.9 - Heart failure, unspecified Complete two-dimensional, color flow and Doppler transthoracic echocardiogram is performed with contrast to opacify the left ventricle and to improve the deliniation of the left ventricle endocardial borders. Summary 1. Left ventricular chamber dimension is normal. 2. Left ventricular systolic function is hyperdynamic, estimated at >70%. 3. There is moderately increased left ventricular wall thickness. 4. The left ventricular diastolic function is grade II diastolic dysfunction. 5. Right ventricular chamber dimension is mildly enlarged. 6. Left atrial chamber dimension is mildly enlarged. 7. There is mild mitral valve regurgitation. 8. There is small pericardial effusion. 9. The aortic valve is bicuspid. Left Ventricle Left ventricular chamber dimension is normal. Left ventricular systolic function is hyperdynamic, estimated at >70%. There is moderately increased left ventricular wall thickness. The left ventricular diastolic function is grade II diastolic dysfunction. Right Ventricle Right ventricular chamber dimension is mildly enlarged. Right ventricular systolic function is normal. Left Atria Left atrial chamber dimension is mildly enlarged. Right Atria Right atrial chamber dimension is normal. Atrial Septum Intact interatrial septum visualized by color flow imaging. Aortic Valve The aortic valve is bicuspid. There is no aortic valve stenosis. There is trace aortic valve regurgitation. Pulmonic Valve The pulmonic valve is normal. There is no pulmonic valve stenosis. There is trace pulmonic regurgitation. Mitral Valve The mitral valve has normal leaflets. There is no mitral valve stenosis. There is mild mitral valve regurgitation. Tricuspid Valve The tricuspid valve leaflets are normal. There is no significant tricuspid valve stenosis. There is trace tricuspid valve regurgitation. Pericardium/Pleural The pericardium appears normal. There is small pericardial effusion. Inferior Vena Cava Normal inferior vena cava with >50% collapse upon inspiration consistent with normal right atrial pressure, 5 mmHg. Aorta The aortic root size at the sinus of Valsalva is normal. The prox ascending aorta size is normal. Left Ventricular Outflow Tract Name Value Normal LVOT 2D LVOT Diameter 2.22 cm LVOT Doppler LVOT Peak Gradient 5 mmHg LVOT Mean Gradient 3 mmHg LVOT VTI 23.02 cm LVOT VTI/AV VTI Ratio
[2020-05-09 02:31] LABS: Urine Cotinine NEGATIVE
[2020-05-09 02:57] LABS: Potassium Urine Random 52.4 meq/L; Sodium Urine Random 79 meq/L
[2020-05-09 07:51] LABS: Glucose Point of Care 119 (65-105)
--- NOTE | 2020-05-09 07:57 | PM.IMPN ---
Progress Note: A&P Assessment and Plan (1) Hypertension associated with diabetes: Code(s): E11.59 - Type 2 diabetes mellitus with other circulatory complications; I10 - Essential (primary) hypertension Status: Acute Assessment and Plan: Re start home meds Continue to monitor Cardiology consult Nephrology consult (2) Acute kidney injury superimposed on chronic kidney disease: Code(s): N17.9 - Acute kidney failure, unspecified; N18.9 - Chronic kidney disease, unspecified Status: Acute Assessment and Plan: Likely secondary to overdiuresis Received fluids overnight Daily BMP Hold diuretics (3) Cardiomyopathy: Code(s): I42.9 - Cardiomyopathy, unspecified Status: Acute Assessment and Plan: Re start home meds. 2DECHO result noted (4) ANTHONY (acute kidney injury): Code(s): N17.9 - Acute kidney failure, unspecified Status: Acute Assessment and Plan: Likely due to overdiuresis. Holding diuretic Fluids gently. (5) Morbid obesity: Code(s): E66.01 - Morbid (severe) obesity due to excess calories Status: Acute Assessment and Plan: Calorie restricted diet Lifestyle modifications (6) Diastolic heart failure: Code(s): I50.30 - Unspecified diastolic (congestive) heart failure Status: Acute Assessment and Plan: Stable Cardiology on board. On Carvedilol . Subjective Date/time seen: 05/09/20 07:57 Patient states that he feels good and would like to go home. Review of Systems Review of Systems: Narrative: Patient presented to ED due to abnormal lab finding. Constitutional: Comments: no fevers, no rigors, no chills. Eyes: Comments: no visual changes. ENT: Comments: no ear ache, no loss of hearing, no throat pain, no nose discharge or congestion.l Cardiovascular: Comments: no chest pain, no leg swelling, no sob, no pnd. Respiratory: Comments: no sob, no cough, no sputum production. Gastrointestinal: Comments: no abdominal pain/nausea/vomiting. Musculoskeletal: Comments: no joint pain or swelling. Integumentary/Breasts: Comments: intertrigo Neurologic: Comments: no sensorymotor deficit. Exam Narrative: Exam Narrative: Patient is sitting in bed. Const: General: cooperative, comfortable, no acute distress, alert, awake and Physically active Nutritional Appearance: overweight Orientation/consciousness: patient oriented x3 Limitations: no limitations HENMT: Head: normal to inspection, normocephalic and atraumatic Ears: hearing grossly normal bilaterally General nose exam: Normal external nose present Face and sinus: normal facial exam Mouth: Yes Normal oral and palatal mucosa present Eyes: General: appearance normal, both eyes and all related structures Pupils: Equal, round and reactive pupils present EOM: EOMs intact bilaterally Neck: Neck: full ROM, no lymphadenopathy and no JVD Thyroid: thyroid normal Lymphatic: no lymphadenopathy noted Resp: Auscultation: clear to auscultation bilaterally Cardio: Jugular venous distension: no JVD Palpation: normal PMI Heart sounds: S1 normal heart sound present and S2 normal heart sound present GI: Inspection: Pannus present and obesity GI Palp: Yes Soft to palpation and Yes No hepatosplenomegaly present Auscultation: normal bowel sounds Skin: Rashes: other (Intertrigo of abdominal fold.) Neuro: General: patient oriented x3 Cranial nerves: Yes CN's II-XII intact bilaterally Cognition (Neuro): normal cognition Speech: normal speech Gait exam (Neuro): Normal gait present Motor exam (neuro): 5/5 motor strength present throughout Extrem: General: normal to inspection and full ROM Objective Data Vital Signs Vital Signs: Vital Signs - 24 hr 05/08/20 13:54 05/08/20 14:10 05/08/20 14:16 Temperature 99.5 F Pulse Rate 112 H 100 106 H Respiratory Rate 18 25 H Blood Pressure 173/98 H Pulse Oximetry 100 05/08/20 14:31 05/08/20 14:59 05/08/20
[2020-05-09] MEDS: carvediloL 25 MG TABLET PO ×2 (08:06→16:25)
[2020-05-09 08:08] LABS: Basophils Percent Auto 0.3 % (0.2-1.2); Eosinophils Absolute Auto 0.4 K/mm3 (0-0.3); Eosinophils Percent Auto 2.9 % (0-4.4); Hematocrit 29.2 % (42.0-52.0); Hemoglobin 9.5 g/dL (14.0-18.0); Immature Granulocyte Absolute 0.09 K/mm3 (0.00-0.031); Immature Granulocyte Percent A 0.7 % (0-0.5); Lymphocytes Absolute Auto 2.59 K/mm3 (0.9-3.2); Lymphocytes Percent Auto 19.5 % (18.3-44.2); Mean Corpuscular HGB Conc 32.5 g/dl (32-36); Mean Corpuscular Volume 95.4 fl (80-100); Mean Platelet Volume 9.4 fl (7.4-10.4); Monocytes Absolute Auto 0.8 K/mm3 (0.1-0.6); Monocytes Percent Auto 6.3 % (2.6-8.5); Neutrophils Absolute Auto 9.4 K/mm3 (1.3-6.7); Neutrophils Percent Auto 70.3 % (45.5-73.1); Platelet Count Result 276 k/mm3 (150-375); Red Blood Count 3.06 M/mm3 (4.6-6.20); Red Cell Distribution Width 12.4 % (11.5-14.5); White Blood Count 13.3 K/mm3 (4.5-10.0)
[2020-05-09 08:15] LABS: Hemoglobin A1C 7.1 % (<5.7)
[2020-05-09 08:24] LABS: Anion Gap 10 mmol/L (8-16); Blood Urea Nitrogen 49 mg/dL (9-20); Calcium 9.2 mg/dL (8.4-10.2); Carbon Dioxide 27 mmol/L (22-30); Chloride 104 mmol/L (98-107); Estimated CRCL calculation 58 ml/min; Estimated Glomerular Filt Rate 34; Glucose 132 mg/dL (75-110); Magnesium 2.1 mg/dL (1.6-2.3); Potassium 4.9 mmol/L (3.4-5.0); Sodium 141 mmol/L (137-145)
--- NOTE | 2020-05-09 10:55 | PM.CNNEP ---
Assessment and Plan Assessment and plan (1) ANTHONY (acute kidney injury): Code(s): N17.9 - Acute kidney failure, unspecified Status: Acute Assessment and Plan: etiology? possible overdiuresis - CXR clear on admission diuretics on hold s/p 1L IVFs overnight - consider further IVF challenge given improvement in creatinine follow trend of repeat labs abd UOP (2) Chronic kidney disease, stage 3: Code(s): N18.30 - Chronic kidney disease, stage 3 unspecified Status: Acute Assessment and Plan: baseline creatinine seem to run around 1.0 - 1.4mg/dl presumably due to his chronic heart failure, DM, and HTN (3) Hyperkalemia: Code(s): E87.5 - Hyperkalemia Status: Acute Assessment and Plan: precipitated by ANTHONY/ARF and use of ABHISHEK-I and spironolactone doing better follow trend (4) Chronic systolic heart failure: Code(s): I50.22 - Chronic systolic (congestive) heart failure Status: Acute Assessment and Plan: appears compensated at this time follow volume status (5) Diabetes: Code(s): E11.9 - Type 2 diabetes mellitus without complications Status: Acute Assessment and Plan: follow accuchecks on SSI Will continue to follow. History of Present Illness Reason for Consult Consult date: 05/09/20 Reason for consult: acute renal failure and hyperkalemia Chief Complaint Chief complaint: Anthony/hyperkalemia History of Present Illness Narrative: The patient is a 40 year old male with a past medical history as outlined below who presented to [facility] ER with abnormal labs. He recently saw his primary care physician who did routine blood work which demonstrated a severe decline in his kidney function associated with an elevated K+ level -- these labs led to his PCP instructing him to come to the ER for further evaluation. Work-up and evaluation in the ER Did demonstrate an elevated potassium level and elevated creatinine above his baseline although I am not entirely clear what his outpatient labs actually showed. He does not appear to be any acute distress and denies any complaints of shortness of breath, fever, chills, nausea, vomiting or any other systemic symptoms. He was otherwise hemodynamically stable but due to the significant laboratory abnormalities, was admitted to the hospital for further evaluation and therapy. Renal consultation was requested due to his acute kidney injury/acute renal failure on top of his baseline kidney disease. His last labs in November of 2019 showed a creatinine around 1.4 mg/dL which is presumably his baseline secondary to his cardiovascular disease and diabetes. On presentation to the emergency room, his potassium was up to 5.5 and his creatinine was up to 2.7 mg/dL. He did receive some fluids overnight and his creatinine has come down to 2.2 and his potassium is normalized although I believe he received a dose of Kayexalate in the emergency room. He has multiple risk factors for fluctuating kidney function including his systolic heart failure with ejection fraction around 30-35%, use/necessity of loop diuretics + spironolactone as well as an ABHISHEK-inhibitor. Currently, at the time of my visit, the patient appears to be in no acute distress is asking if it is possible for him to be discharged later today. Review of Systems Review of Systems: Narrative: As per HPI. [facility] Past Medical History Medical History (Updated 05/09/20 @ 12:10 by Raymundo Orellana MD) Cardiomyopathy Congestive heart failure last echo November of 2019 EF of 30-35% Hypertension Morbid obesity Systolic congestive heart failure Type 2 diabetes mellitus with hyperglycemia, without long-term current use of insulin Surgical History Surgical History No significant past surgical history Family History Family History (Reviewed 05/08/20 @ 19:20 by Tiffanie Carlisle,
[2020-05-09 11:43] LABS: Glucose Point of Care 177 (65-105)
--- NOTE | 2020-05-09 13:31 | PM.CNCAR ---
Assessment and Plan Assessment and plan (1) Chronic systolic heart failure: Code(s): I50.22 - Chronic systolic (congestive) heart failure Status: Acute Assessment and Plan: Continue carvedilol 25 mg p.o. b.i.d.. Hold spironolactone. eventually restart lower dose lisinopril when okay with Nephrology. 1 L IV fluids x1 (2) Hypertension: Qualifiers: Hypertension type: unspecified Qualified Code(s): I10 - Essential (primary) hypertension Code(s): I10 - Essential (primary) hypertension Status: Chronic Assessment and Plan: above goal. Continue carvedilol. Eventually restart lisinopril (3) Cardiomyopathy: Code(s): I42.9 - Cardiomyopathy, unspecified Status: Acute Assessment and Plan: 2D echocardiogram Doppler will be ordered now to re-evaluate ejection fraction. He wants to hold off on stress testing (4) Acute kidney injury superimposed on chronic kidney disease: Code(s): N17.9 - Acute kidney failure, unspecified; N18.9 - Chronic kidney disease, unspecified Status: Acute Assessment and Plan: probably related to dehydration. repeat basic metabolic panel tomorrow (5) Hypertension associated with diabetes: Code(s): E11.59 - Type 2 diabetes mellitus with other circulatory complications; I10 - Essential (primary) hypertension Status: Acute Assessment and Plan: above goal History of Present Illness History of Present Illness Consult date/time: 05/09/20 13:31 Requesting physician: Tiffanie Carlisle NP Consult reason: congestive heart failure Reason For Visit: Rui/hyperkalemia Narrative: Date of service: For reason for consultation CHF History: Patient is 40-year-old male who was supposed to follow up with Dr. Lynch in the office on March 28. This was canceled. His also cancel his echo and nuclear study on 2 separate occasions each. Does have a history of a cardiomyopathy with an ejection fraction 30-35% diagnosed in November. He has been on carvedilol, furosemide, lisinopril and spironolactone as an outpatient. He did have some outpatient labs drawn by his primary care provider it was sent to the emergency room because of abnormal labs and renal insufficiency. Patient states that from a cardiac perspective he is feeling okay and denies any chest pain, shortness of breath, syncope, presyncope, paroxysmal nocturnal dyspnea , orthopnea, edema palpitations. He states that he has not had any chest pain since before his last admission. with fluids in the emergency room, his creatinine has improved somewhat. Review of Systems Review of Systems: All systems reviewed & are unremarkable except as noted in HPI and below Constitutional: Constitutional: Denies body ache(s) and Denies chills Eyes: Eyes: Denies blurry vision ENT: Reports Normal hearing present Cardiovascular: Cardiovascular: Denies chest pain at rest Respiratory: Respiratory: Denies cough Gastrointestinal: Gastrointestinal: Denies abdominal pain Genitourinary: Genitourinary: Denies change in libido Musculoskeletal: Musculoskeletal: Denies back pain Integumentary/Breasts: Skin/Breast: Denies swelling and Denies dry skin Neurologic: Reports Normal hearing present Psychiatric: Psychiatric: Denies anxiety Endocrine: Endocrine: Denies cold intolerance Hematologic/Lymphatic: Hematologic/Lymphatic: Denies easy bleeding Allergic/Immunologic: Allergic/Immunologic: Denies lip swelling [facility] Past Medical History Medical History (Updated 05/09/20 @ 13:38 by Macario Mensah MD) Cardiomyopathy Congestive heart failure last echo November of 2019 EF of 30-35% Hypertension Hypertension associated with diabetes Morbid obesity Systolic congestive heart failure Type 2 diabetes mellitus with hyperglycemia, without long-term current use of insulin Surgical History Surgical History No si
[2020-05-09] MEDS: PERFLUTREN LIPID MICROSPHERES 1.5 ML VIAL DILUTED TO 10 ML TOTAL VOLUME IV PUSH (14:41)
[2020-05-09] MEDS: SODIUM CHLORIDE 0.9% IV 1,000 ML 100 ML IV CONT (16:25)
[2020-05-09 16:49] LABS: Glucose Point of Care 111 (65-105)
[2020-05-09 21:31] LABS: Glucose Point of Care 174 (65-105)
[2020-05-10] VITALS (7 sets, daily range): BP systolic 115–134; BP diastolic 67–85; PULSE 72–92; RESP 16–20; TEMP 36.2–36.8; O2SAT 79–100
[2020-05-10 07:37] LABS: Glucose Point of Care 141 (65-105)
[2020-05-10] MEDS: carvediloL 25 MG TABLET PO (08:29)
[2020-05-10 10:55] LABS: Alanine Aminotransferase 39 U/L (4-50); Albumin Level 4.4 g/dL (3.5-5.1); Alkaline Phosphatase 78 U/L (38-126); Anion Gap 17 mmol/L (8-16); Aspartate Amino Transferase 38 U/L (17-59); Bilirubin,Total 0.3 mg/dL (0.2-1.3); Blood Urea Nitrogen 34 mg/dL (9-20); Calcium 8.8 mg/dL (8.4-10.2); Carbon Dioxide 21 mmol/L (22-30); Chloride 102 mmol/L (98-107); Estimated CRCL calculation 79 ml/min; Estimated Glomerular Filt Rate 49; Glucose 173 mg/dL (75-110); Potassium 4.8 mmol/L (3.4-5.0); Sodium 140 mmol/L (137-145)
[2020-05-10 11:30] LABS: Glucose Point of Care 149 (65-105)
--- NOTE | 2020-05-10 12:40 | PM.PNCARD ---
Progress Note: A&P Assessment and Plan (1) Chronic systolic heart failure: Code(s): I50.22 - Chronic systolic (congestive) heart failure Status: Acute Assessment and Plan: Continue carvedilol 25 mg p.o. b.i.d.. Eventually restart lower dose lisinopril when okay with Nephrology. This can be done as an outpatient. Echocardiogram 05/09/2020: 1. Left ventricular chamber dimension is normal. ( left ventricular chamber dimension moderately enlarged 12/10/2019) 2. Left ventricular systolic function is hyperdynamic, estimated at >70%. ( EF 30-35% 12/10/2019) 3. There is moderately increased left ventricular wall thickness. 4. The left ventricular diastolic function is grade II diastolic dysfunction. 5. Right ventricular chamber dimension is mildly enlarged. 6. Left atrial chamber dimension is mildly enlarged. 7. There is mild mitral valve regurgitation. 8. There is small pericardial effusion. 9. The aortic valve is bicuspid. Reviewed the findings of his echocardiogram with him and his father. Of course even though there is improvement in his ejection fraction he will need to continue medications. Does not need diuretics at this time. (2) Hypertension: Qualifiers: Hypertension type: unspecified Qualified Code(s): I10 - Essential (primary) hypertension Code(s): I10 - Essential (primary) hypertension Status: Chronic Assessment and Plan: At goal. Continue carvedilol. Eventually restart lisinopril as above. May be done as an outpatient (3) Cardiomyopathy: Qualifiers: Cardiomyopathy type: unspecified Qualified Code(s): I42.9 - Cardiomyopathy, unspecified Code(s): I42.9 - Cardiomyopathy, unspecified Status: Acute Assessment and Plan: -Echo as above. He wants to hold off on stress testing . No ischemic symptoms. -Reviewed doing daily weights to monitor fluid status . Sodium intake limited to 2000 mg per day. He states that he carefully watches his sodium intake. His brother is a trained private chef and has been helping him with his diet. His father states that they only eat fresh. Also stated that keeping him on the diet has been difficult. Does drink Power Aid which has 150 mg sodium and 35 mg of potassium per serving. Serving size 12 oz. Should be limiting his sodium intake to no more than 2000 mg per day. -Should be limiting fluid intake to no more than 2 L per day. He states that he does not think he drinks at much. He does drink when he is thirsty but as stated drinks more power aid than water. -Continue carvedilol 25 mg b.i.d.. Will not be discharged on furosemide and spironolactone. Most likely restart lisinopril at a lower dose when his renal function returns to baseline. Stressed the importance of making sure that he comes to his appointments for converts does appointments to a telephone/video appointment AND getting his lab work done as directed. -Cardiology should be managing his cardiac medications. These include carvedilol, lisinopril, furosemide and spironolactone. His primary care physician should be managing his diabetes. (4) Acute kidney injury superimposed on chronic kidney disease: Code(s): N17.9 - Acute kidney failure, unspecified; N18.9 - Chronic kidney disease, unspecified Status: Acute Assessment and Plan: Probably related to dehydration. BUN and creatinine improved after 2 L of fluid. Not yet back to baseline. Dr. Orellana following. Check BMP Friday, May 15, 2020 with results to go to Dr. Lynch, Dr. Orellana and Primary Care Provider. He has a follow-up appointment to see Niki Rios NP on May 23, 2020 at 10:00 a.m.. (5) Hypertension associated with diabetes: Code(s): E11.59 - Type 2 diabetes mellitus with other circulatory complications; I10 - Essential (primar
--- NOTE | 2020-05-10 15:33 | PM.DS ---
DS: Admitting Diagnosis Admitting Diagnosis Admitting Diagnosis: Rui/hyperkalemia DS: Summary Time Spent with Patient Time attestation: Total time spent providing and/or coordinating discharge services: DS: Data Data Completed and Pending Labs on day of discharge: Labs from last 24 hours 05/10/20 05/10/20 05/10/20 11:27 10:30 07:25 Sodium 140 Potassium 4.8 Chloride 102 Carbon Dioxide 21 L Anion Gap 17 H BUN 34 H D Creatinine 1.60 H Estim Creat Clear Calc 79 Estimated GFR 49 L Glucose 173 H POC Capillary Glucose 149 H 141 H Calcium 8.8 Total Bilirubin 0.3 AST 38 ALT 39 Alkaline Phosphatase 78 Total Protein 9.0 H Albumin 4.4 05/09/20 05/09/20 20:11 16:44 Sodium Potassium Chloride Carbon Dioxide Anion Gap BUN Creatinine Estim Creat Clear Calc Estimated GFR Glucose POC Capillary Glucose 174 H 111 H Calcium Total Bilirubin AST ALT Alkaline Phosphatase Total Protein Albumin Discharge Plan Discharge Attending physician on discharge: Severino Patel V. Consulting providers: Raymundo Orellana ; Toney Lynch Discharging Clinician: Severino Patel V. Patient Disposition: Home, Self-Care Activity: other - see discharge instructions Diet: heart healthy, diabetic, renal and low sodium Discharge Instructions: CARDIOLOGY DISCHARGE INSTRUCTIONS: ACTIVITY:Activity as tolerated with precautions to avoid falls. Rise slowly from a seated or lying position. Elevate legs when sitting. Weigh your self daily after you have urinated in the morning. If you gain more than 3 lb in 2 days or 5 lb in one week please call 's office and speak to one of the nurses. Increase your activity to a period of walking at least 30 minutes 5 times per week. FOLLOW-UP: Follow-up with Primary Care Provider 1-2 weeks. Follow up with [facility] [place] ([facility]) office at [facility] [address] with Niki Rios NP on May 23, 2020 at 10:00 a.m.. Please arrive by 9:45 a.m. for your appointment. Bring photo ID, insurance card(s) and current medication list. If for some reason you do not want to come to the office please call and this can be converted to a Telemedicine appointment. Close follow-up after hospitalization is very important. DIET: Limit sodium intake to 2000 mg per day. Powerade contains 150 mg as sodium and 35 mg of potassium per 12 oz serving. Limit your fluid intake to no more than 2 L (68 oz) per day. It may be beneficial for you to see a dietitian to discuss low-sodium, diabetic diet with a goal at weight loss. BLOOD WORK: have blood drawn on Friday, May 15, 2020 to check kidney function and electrolytes. Results to go to Dr. Lynch, Dr. Orellana and . The requisition to have your blood drawn is in your discharge packet. Take this requisition to the lab of your choice. Patient Instructions: Antibiotic Form, Heart Failure (DC), Acute Kidney Injury (DC), Pain Management (DC), Diabetes and Your Skin (DC), Diabetes and Nutrition (DC), Type 2 Diabetes Management for Adults (DC) Stand Alone Forms: General Discharge Information Follow-up/Referrals: Rudy Scott MD [Primary Care Provider] - Discharge Medications: Continued metformin [Glucophage] 500 mg Tablet 500 mg PO BIDWM Qty: 6 RF: 0 carvedilol 25 mg tablet 25 mg PO BID RF: 0 Discontinued spironolactone 25 mg Tablet 25 mg PO QAM Qty: 30 RF: 3 furosemide 20 mg Tablet 20 mg PO DAILY Qty: 3 RF: 0 lisinopril 40 mg tablet 40 mg PO DAILY RF: 0 Other Ambulatory Orders: Basic Metabolic Panel (Routine) Timeframe: 20200515 Location: Determined by Patient Ordered By: Rebecca Rivera Date of admission: 05/08/20 14:58 Primary Care
[2020-05-12 05:36] LABS: Osmolality, Urine 635 mOsm/kg (50-1200)
== END 2020-05-10 16:36 | disposition home or self-care (01) ==
LOC: ANHED 16:44 → ANH2MED 16:49
PROVIDERS: Nurse Practitioner; Admitting Provider Internal Medicine; Emergency Provider Emergency Medicine; PCP Emergency Medicine; Visit Provider Internal Medicine
DX: N17.9 Acute kidney failure, unspecified (principal); E87.5 Hyperkalemia; E11.65 Type 2 diabetes mellitus with hyperglycemia; I13.0 Hypertensive heart and chronic kidney disease with heart failure and stage 1 through stage 4 chronic kidney disease, or unspecified chronic kidney disease; N18.30 Chronic kidney disease, stage 3 unspecified; I42.9 Cardiomyopathy, unspecified; I50.22 Chronic systolic (congestive) heart failure; E11.22 Type 2 diabetes mellitus with diabetic chronic kidney disease; E78.5 Hyperlipidemia, unspecified; I34.0 Nonrheumatic mitral (valve) insufficiency; E66.01 Morbid (severe) obesity due to excess calories; Z68.42 Body mass index [BMI] 45.0-49.9, adult; Z79.84 Long term (current) use of oral hypoglycemic drugs; Z79.899 Other long term (current) drug therapy
CPT/HCPCS: 36415; 71046; 76775; 80048; 80053; 80307; 83036; 83735; 83880; 83935; 84133; 84300; 84484; 85025; 93005; 94762; 96360; 96361; 96374; 99285; A9270; C8929; G0378; G0379; J7030; Q9957

== ENCOUNTER 2020-05-16 13:42 | Emergency (ER) | payer OTHER, SELFPAY ==
[2020-05-16 13:59] VITALS: BP 193/101; PULSE 106; RESP 18; TEMP 36.1; O2SAT 98
--- NOTE | 2020-05-16 14:00 | ED.GENADULT ---
HPI - General Adult General Chief complaint: Recheck/Abnormal Lab/Rx Stated complaint: sent by pcp for elevated WBC Time Seen by Provider: 05/16/20 13:54 Source: patient History of Present Illness HPI narrative: Patient is 40 y/o male sent by PCP for abnormal labs. He was recently discharged from hospital. He had routine labs done at [facility] yesterday. He states that his doctor's office called today and told him that his white blood cell count was high and hemoglobin was low. He was then directed here. He denies any pain, SOB. He has some chronic soft stool which he attributed to medication. He denies any blood in stool or dark stool. He denies any fever or chills. Related Data Home Medications Medication Instructions Recorded Confirmed carvedilol 25 mg PO BID 05/08/20 05/08/20 Allergies Allergy/AdvReac Type Severity Reaction Status Date / Time Penicillins AdvReac Hives Verified 05/16/20 13:59 Review of Systems Constitutional: Constitutional: Denies chills, Denies fever(s), Denies headache(s) and Denies weakness Eyes: Eyes: Denies blurry vision ENT: Denies headache(s) and Denies neck pain Cardiovascular: Cardiovascular: Denies chest pain and Denies dyspnea Respiratory: Respiratory: Denies cough and Denies dyspnea Gastrointestinal: Gastrointestinal: Denies abdominal pain, Denies diarrhea, Reports loose stools, Denies nausea and Denies vomiting Genitourinary: Genitourinary: Denies hematuria and Denies dysuria Musculoskeletal: Musculoskeletal: Denies back pain and Denies neck pain Neurologic: Denies headache(s) and Denies weakness [facility] Past Medical History Medical History Cardiomyopathy Congestive heart failure last echo November of 2019 EF of 30-35% Hypertension Hypertension associated with diabetes Morbid obesity Systolic congestive heart failure Type 2 diabetes mellitus with hyperglycemia, without long-term current use of insulin Surgical History Surgical History No significant past surgical history Family History Family History Mother , in 2014 while in her mid-50's. First [place] in her mid-40s. Acute myocardial infarction Chronic obstructive pulmonary disease History of blood clots Cerebrovascular accident Congestive heart failure Diabetes mellitus Hypertension Father Alive and well Social History Social History Social History: Patient lives with his father and brother. 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 The patient is not able to work at this point because of his ejection fraction of 30-35%. He is a nonsmoker does not drink use marijuana or any illicit drugs. The patient stated that he would nominated his dad to be the durable power sports attorney for healthcare. And he is a full code. Smoking status: Never smoker Second hand tobacco smoke exposure: Yes Alcohol intake: never Drinks per week: 1 Substance use: never Substance use type: does not use Gender identity (if verbalized by the patient): Male Spiritual care concerns: No Exam Const: General: no acute distress and well developed Orientation/consciousness: oriented to person, oriented to place, oriented to time and patient oriented x3 HENMT: Head: normocephalic Ears: external ears normal General nose exam: Normal external nose present Eyes: General: appearance normal, both eyes and all related structures Conjunctivae: conjunctivae normal Neck: Neck: normal visual inspection and full ROM Chest: Chest palpation & inspection: normal inspection of the chest and no tenderness Resp: Effort & Inspection: normal respiratory effort Auscultation: clear to auscultation bilaterally Cardio: Rate: regular rate Rhythm: regular rhythm GI: GI Palp: No abdominal tenderness and Yes
[2020-05-16 14:01] VITALS: BP 150/88; PULSE 94; RESP 19; O2SAT 99
[2020-05-16 14:16] LABS: Basophils Absolute Auto 0.1 K/mm3 (0.0-0.1); Basophils Percent Auto 0.4 % (0.2-1.2); Eosinophils Absolute Auto 0.5 K/mm3 (0-0.3); Eosinophils Percent Auto 2.9 % (0-4.4); Hematocrit 31.8 % (42.0-52.0); Hemoglobin 10.2 g/dL (14.0-18.0); Immature Granulocyte Absolute 0.13 K/mm3 (0.00-0.031); Immature Granulocyte Percent A 0.8 % (0-0.5); Lymphocytes Absolute Auto 2.53 K/mm3 (0.9-3.2); Lymphocytes Percent Auto 14.8 % (18.3-44.2); Mean Corpuscular HGB Conc 32.1 g/dl (32-36); Mean Corpuscular Volume 96.7 fl (80-100); Mean Platelet Volume 9.8 fl (7.4-10.4); Monocytes Percent Auto 5.7 % (2.6-8.5); Neutrophils Absolute Auto 12.9 K/mm3 (1.3-6.7); Neutrophils Percent Auto 75.4 % (45.5-73.1); Nucleated Red Blood Cells Perc 0.1 % (0.0-0.2); Platelet Count Result 274 k/mm3 (150-375); Red Blood Count 3.29 M/mm3 (4.6-6.20); Red Cell Distribution Width 12.9 % (11.5-14.5); White Blood Count 17.1 K/mm3 (4.5-10.0)
[2020-05-16 14:28] LABS: Alanine Aminotransferase 48 U/L (4-50); Albumin Level 4.2 g/dL (3.5-5.1); Alkaline Phosphatase 90 U/L (38-126); Anion Gap 10 mmol/L (8-16); Aspartate Amino Transferase 34 U/L (17-59); Bilirubin,Total 0.4 mg/dL (0.2-1.3); Blood Urea Nitrogen 29 mg/dL (9-20); Calcium 9.5 mg/dL (8.4-10.2); Carbon Dioxide 25 mmol/L (22-30); Chloride 104 mmol/L (98-107); Estimated CRCL calculation 89 ml/min; Estimated Glomerular Filt Rate 57; Glucose 190 mg/dL (75-110); Potassium 4.6 mmol/L (3.4-5.0); Sodium 139 mmol/L (137-145)
[2020-05-16 15:25] LABS: Prothrombin Time 12.8 Seconds (11.1-14.7)
[2020-05-16 15:26] LABS: Partial Thromboplastin Time 27.4 SECONDS (22.3-36.8)
== END 2020-05-16 15:25 | disposition home or self-care (01) ==
PROVIDERS: Emergency Provider Emergency Medicine; PCP Emergency Medicine
DX: D72.829 Elevated white blood cell count, unspecified (principal); I11.0 Hypertensive heart disease with heart failure; I50.9 Heart failure, unspecified; E11.9 Type 2 diabetes mellitus without complications; Z79.4 Long term (current) use of insulin
CPT/HCPCS: 36415; 80053; 85025; 85610; 85730; 86850; 86900; 86901; 99283

== ENCOUNTER 2022-03-16 16:50 | Emergency (ER) | payer OTHER, SELFPAY ==
--- NOTE | ~2022-03-16 | XR_ITS ---
EXAMINATION: XR chest 2V Exam Date/Time: 03/16/2022 17:05 CDT HISTORY: fever Comparison: 05/08/2020. RESULT: Lines, tubes, and devices: None. Lungs and pleura: Clear. Cardiomediastinal silhouette: Stable. Other: No acute osseous or upper abdominal finding. IMPRESSION: No acute cardiopulmonary process. Reviewed, dictated and finalized at location K.
[2022-03-16 16:57] VITALS: BP 159/95; PULSE 113; RESP 18; TEMP 38.2; O2SAT 97
--- NOTE | 2022-03-16 17:10 | ED.FEVER ---
HPI - Fever General Chief Complaint: Fever Stated Complaint: fever 104.5 History of Present Illness HPI Narrative: 41-year-old male with history of CHF, diabetes and hypertension presents the emergency room with a sudden onset of fever. Patient states his temperature at home 2 hours ago was 104.5. Patient states he took 2 DayQuil prior to arrival. Patient denies any shortness of breath difficulty breathing abdominal pain rashes or dysuria. Denies cough, or sinus congestion. Related Data Home Medications Medication Instructions Recorded Confirmed carvedilol 25 mg tablet 25 mg PO BID 05/08/20 05/08/20 Allergies Allergy/AdvReac Type Severity Reaction Status Date / Time Penicillins AdvReac Hives Verified 03/16/22 17:00 Review of Systems Review of Systems: CONSTITUTIONAL: Reports fever EYES: Denies visual changes, redness, or discharge. ENT: Denies rhinorrhea, congestion, sore throat, or otalgia. CARDIOVASCULAR: Denies chest pain, palpitations, or edema. RESPIRATORY: Denies cough or dyspnea. GASTROINTESTINAL: Denies abdominal pain, nausea, vomiting, or diarrhea. GENITOURINARY: Denies dysuria or hematuria. SKIN: Denies rash or itching. MUSCULOSKELETAL: Denies back pain, joint pain, or myalgia. NEUROLOGIC: Denies headache, numbness, dizziness, or weakness. PSYCHIATRIC: Denies anxiety or depression. [facility] Past Medical History Medical History Cardiomyopathy Congestive heart failure last echo November of 2019 EF of 30-35% Hypertension Hypertension associated with diabetes Morbid obesity Systolic congestive heart failure Type 2 diabetes mellitus with hyperglycemia, without long-term current use of insulin Surgical History Surgical History No significant past surgical history Family History Family History Mother , in 2014 while in her mid-50's. [employer] [place] in her mid-40s. Acute myocardial infarction Chronic obstructive pulmonary disease History of blood clots Cerebrovascular accident Congestive heart failure Diabetes mellitus Hypertension Father Alive and well Social History Social History Social History: Patient lives with his father and brother. 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 The patient is not able to work at this point because of his ejection fraction of 30-35%. He is a nonsmoker does not drink use marijuana or any illicit drugs. The patient stated that he would nominated his dad to be the durable power insurance attorney for healthcare. And he is a full code. Smoking status: Never smoker Second hand tobacco smoke exposure: Yes Alcohol intake: never Drinks per week: 1 Alcohol use details: Occasional, light Substance use: never Substance use type: does not use Gender identity (if verbalized by the patient): Male Spiritual care concerns: No Exam Narrative: GENERAL: Ill-appearing, well-nourished, no physical limitations, and in no acute distress. HEAD: Normocephalic, atraumatic. EYES: Conjunctivae normal, PERRLA and EOMI. ENT: External nose normal, Nares clear, no rhinorrhea or epistaxis. Mucous membranes moist. Oropharynx without tonsillar hypertrophy exudate or other lesions. External ears normal, bilateral TMs normal bilaterally NECK: Supple. No adenopathy or masses. CHEST: Clear to auscultation. No respiratory distress. No wheezes rales or rhonchi. No tenderness. HEART: Tachycardic and regular rhythm. No murmur heard. Normal peripheral pulses. ABDOMEN: Soft, nontender, morbidly obese, normal active bowel sounds. EXTREMITIES: Normal range of motion. No edema. No clubbing or cyanosis SKIN: Warm, dry, no rash. No noted wounds NEURO: No focal deficits. Alert and oriented x3. MAEW. CN's II-XI intact bilaterally, normal gait P
[2022-03-16 18:46] LABS: Influenza A QL RT-PCR Negative (Negative); Influenza B QL RT-PCR Negative (Negative); SARS-CoV-2 RNA PCR Positive
== END 2022-03-16 19:22 | disposition home or self-care (01) ==
PROVIDERS: Emergency Provider Nurse Practitioner Family; PCP Physician Assistant
DX: U07.1 COVID-19 (principal); I50.20 Unspecified systolic (congestive) heart failure; I11.0 Hypertensive heart disease with heart failure; E11.9 Type 2 diabetes mellitus without complications; I42.9 Cardiomyopathy, unspecified; E66.01 Morbid (severe) obesity due to excess calories; Z68.41 Body mass index [BMI] 40.0-44.9, adult; Z77.22 Contact with and (suspected) exposure to environmental tobacco smoke (acute) (chronic); Z79.84 Long term (current) use of oral hypoglycemic drugs
CPT/HCPCS: 71046; 87502; 99283; C9803; U0003; U0005